=== PATIENT | male | born 1955 | race Caucasian/White ===

== ENCOUNTER 2020-09-07 14:48 | Inpatient (IN) | payer MEDICARE, MEDICAID ==
[~2020-09-07] VITALS: Ht 152.4 cm; Wt 54.9 kg
[2020-09-07] MEDS ORDERED: SODIUM CHLORIDE 0.9% 1000ML BAG (SEPSIS BOLUS) IV ONE (15:30)
[2020-09-07] MEDS ORDERED: CEFTRIAXONE 1 G PREMIX 50 ML IV NR (15:30)
[2020-09-07 15:52] LABS: MEAN CORPUSCULAR HEMOGLOBIN 38.4 pg (28.0-32.0); MEAN CORPUSCULAR VOLUME 106.2 fL (80.0-94.0); PLATELET 81 x1000/uL (130-400); RED CELL DISTRIBUTION WIDTH 16.2 % (11.6-14.6)
[2020-09-07 15:58] LABS: CHLORIDE 96 mEq/L (98-107)
[2020-09-07 16:01] LABS: HEMATOCRIT. 15.9 % (42.0-52.0); HEMOGLOBIN. 5.7 g/dL (14.0-18.0)
[2020-09-07 16:23] LABS: PLATELET ESTIMATE DECREASED
[2020-09-07] MEDS ORDERED: OCTREOTIDE 1,000 MCG in SODIUM CHLORIDE 0.9% 100 ML IV SCH ×2 (16:44→17:00)
[2020-09-07] MEDS ORDERED: PANTOPRAZOLE SODIUM 40 MG/VIAL IV NR (16:45)
[2020-09-07] MEDS ORDERED: DOCUSATE SODIUM 100MG CAPSULE PO PRN (19:30)
[2020-09-07] MEDS ORDERED: GUAIFENESIN 200MG/10ML SUGAR FREE UDC PO PRN (19:30)
[2020-09-07] MEDS ORDERED: ONDANSETRON HCL 4MG/2ML INJ IV PRN (19:30)
[2020-09-07] MEDS ORDERED: CLONIDINE 0.1MG TABLET PO PRN (19:30)
[2020-09-07] MEDS ORDERED: ACETAMINOPHEN 325MG TABLET PO PRN ×2 (19:30)
[2020-09-07] MEDS ORDERED: NA PHOS,M-B/NA PHOS,DI-BA ENEMA 118ML PR PRN (19:30)
[2020-09-07] MEDS ORDERED: LEVOFLOXACIN 500MG PREMIX 100 ML IV NR (19:30)
[2020-09-07] MEDS: DEXT 5%/LACTATED RINGERS 1,000 ML IV SCH (19:30)
[2020-09-07] MEDS ORDERED: IPRATROPIUM/ALBUTEROL 0.5-3(2.5)MG/3ML NEB NEB PRN (19:30)
[2020-09-07] MEDS ORDERED: MAGNESIUM/ALUMINUM HYDROXIDE/SIMETHICONE 30ML UDC PO PRN (19:30)
[2020-09-07 19:32] LABS: INR 1.5; PARTIAL THROMBOPLASTIN TIME 60.9 sec (23.4-31.0); PROTHROMBIN TIME 15.9 sec (9.6-11.0)
[2020-09-07 19:41] LABS: ETHANOL BLOOD < 10 mg/dL
[2020-09-07 19:43] LABS: TOTAL IRON BINDING CAPACITY 126 ug/dL (250-450)
[2020-09-07] MEDS ORDERED: NOREPINEPHRINE 8MG/250ML PMX 250 ML IV PRN (19:45)
[2020-09-07 19:47] LABS: T4 FREE 0.96 ng/dL (0.76-1.46)
[2020-09-07] MEDS ORDERED: LACTULOSE 20G/30ML UDC PO SCH (20:00)
[2020-09-07 20:02] LABS: FOLIC ACID (FOLATE) SERUM 10.2 ng/mL (>5.38)
[2020-09-07] MEDS ORDERED: PHYTONADIONE 10MG/ML AMP SUBCUT NR (22:15)
[2020-09-07] MEDS ORDERED: PHYTONADIONE 10 MG in DEXTROSE 5% WATER 50 ML SUBCUT ONE (22:15)
[2020-09-07] MEDS: LACTULOSE 20G/30ML UDC PO SCH (23:22)
[2020-09-08 00:35] LABS: CREATINE KINASE 50 IU/L (39-308)
[2020-09-08 00:37] LABS: CREATINE KINASE MB FRACTION 1.6 ng/mL (0.5-3.6)
[2020-09-08 00:57] LABS: HEMATOCRIT. 22.9 % (42.0-52.0); HEMOGLOBIN. 7.9 g/dL (14.0-18.0); MEAN CORPUSCULAR VOLUME 95.2 fL (80.0-94.0); MEAN PLATELET VOLUME 7.2 fl (7.4-10.4); PLATELET 83 x1000/uL (130-400); RED CELL DISTRIBUTION WIDTH 21.5 % (11.6-14.6)
[2020-09-08 01:38] LABS: CLARITY URINE CLEAR (CLEAR); COLOR URINE YELLOW (YELLOW); KETONES URINE NEGATIVE (NEGATIVE); LEUKOCYTE ESTERASE URINE NEGATIVE (NEGATIVE); NITRITE URINE NEGATIVE (NEGATIVE); OCCULT BLOOD URINE NEGATIVE (NEGATIVE); PROTEIN URINE NEGATIVE (NEGATIVE); SPECIFIC GRAVITY URINE 1.013 (1.005-1.030); UROBILINOGEN URINE 0.2 E.U./dL (0.2-1.0)
[2020-09-08 01:50] LABS: *AMPHETAMINES SCREEN URINE NEGATIVE (NEGATIVE); *BARBITURATES SCREEN URINE NEGATIVE (NEGATIVE)
[2020-09-08 01:51] LABS: *BENZODIAZEPINES SCREEN URINE NEGATIVE (NEGATIVE); *COCAINE SCREEN URINE NEGATIVE (NEGATIVE); CANNABINOID URINE SCREEN NEGATIVE (NEGATIVE); METHADONE URINE SCREEN NEGATIVE (NEGATIVE); OPIATES URINE SCREEN NEGATIVE (NEGATIVE); PHENCYCLIDINE URINE SCREEN NEGATIVE (NEGATIVE)
[2020-09-08] MEDS ORDERED: OCTREOTIDE 1,000 MCG in SODIUM CHLORIDE 0.9% 100 ML IV SCH (02:00)
[2020-09-08] MEDS ORDERED: NOREPINEPHRINE 8 MG in DEXT 5% WATER 242 ML IV PRN (02:00)
[2020-09-08] MEDS ORDERED: PANTOPRAZOLE 80 MG in SODIUM CHLORIDE 0.9% 100 ML IV SCH (02:00)
[2020-09-08] MEDS: PANTOPRAZOLE 80 MG in SODIUM CHLORIDE 0.9% 100 ML IV SCH ×2 (02:32→13:00)
[2020-09-08 04:39] LABS: HEMATOCRIT. 22.4 % (42.0-52.0); HEMOGLOBIN. 7.5 g/dL (14.0-18.0); MEAN CORPUSCULAR HEMOGLOBIN 32.5 pg (28.0-32.0); MEAN PLATELET VOLUME 7.8 fl (7.4-10.4); PLATELET 89 x1000/uL (130-400); RED BLOOD CELL COUNT 2.31 mill/uL (4.7-6.1); RED CELL DISTRIBUTION WIDTH 21.6 % (11.6-14.6)
[2020-09-08 04:56] LABS: CHLORIDE 100 mEq/L (98-107)
[2020-09-08 05:02] LABS: PHOSPHORUS 4.6 mg/dL (2.5-4.9)
[2020-09-08 05:04] LABS: CREATINE KINASE 35 IU/L (39-308)
[2020-09-08] MEDS: LACTULOSE 20G/30ML UDC PO SCH ×3 (06:40→22:21)
[2020-09-08] MEDS ORDERED: CEFTRIAXONE 1 G PREMIX 50 ML IV SCH (09:00)
[2020-09-08] MEDS ORDERED: CEFTRIAXONE SODIUM 1 G/VIAL ONE (10:12)
[2020-09-08] MEDS: CEFTRIAXONE 1,000 MG in DEXTROSE 5% WATER 50 ML IV SCH (10:36)
[2020-09-08] MEDS ORDERED: OCTREOTIDE 1,000 MCG in SODIUM CHLORIDE 0.9% 98 ML IV SCH (13:15)
[2020-09-08] MEDS: SODIUM CHLORIDE 0.9% 1,000 ML IV SCH (13:45)
[2020-09-08] MEDS: DEXT 5%/LACTATED RINGERS 1,000 ML IV SCH (15:50)
[2020-09-08] MEDS: PANTOPRAZOLE SODIUM 40 MG/VIAL IV SCH (18:12)
[2020-09-08 21:55] VITALS: BP 131/78
[2020-09-09] VITALS (16 sets, daily range): BP systolic 89–113; BP diastolic 49–72
[2020-09-09 02:37] LABS: PLATELET ESTIMATE DECREASED
[2020-09-09 02:45] LABS: PLATELET ESTIMATE DECREASED
[2020-09-09] MEDS: SODIUM CHLORIDE 0.9% 1,000 ML IV SCH ×2 (03:40→16:37)
[2020-09-09] MEDS ORDERED: FURO40TA5 PO (04:21)
[2020-09-09] MEDS ORDERED: LACT10SO6 PO (04:21)
[2020-09-09] MEDS ORDERED: SPIR50TA5 PO (04:21)
[2020-09-09] MEDS ORDERED: ZOLP5TAB2 PO (04:21)
[2020-09-09] MEDS: LACTULOSE 20G/30ML UDC PO SCH ×3 (06:11→22:03)
[2020-09-09 08:52] LABS: MEAN CORPUSCULAR HEMOGLOBIN 33.4 pg (28.0-32.0); MEAN CORPUSCULAR VOLUME 95.9 fL (80.0-94.0); MEAN PLATELET VOLUME 8.2 fl (7.4-10.4); PLATELET 74 x1000/uL (130-400)
[2020-09-09 09:00] LABS: PHOSPHORUS 4.6 mg/dL (2.5-4.9)
[2020-09-09 09:16] LABS: HEMATOCRIT. 17.2 % (42.0-52.0)
[2020-09-09] MEDS: CEFTRIAXONE 1,000 MG in DEXTROSE 5% WATER 50 ML IV SCH (09:36)
[2020-09-09] MEDS: PANTOPRAZOLE SODIUM 40 MG/VIAL IV SCH ×2 (09:36→16:39)
[2020-09-09] MEDS ORDERED: LEVOFLOXACIN 500MG PREMIX 100 ML IV SCH (11:00)
[2020-09-09] MEDS ORDERED: SODIUM POLYSTYRENE SULFONATE 15 G/60 ML BOT PO NR (11:00)
[2020-09-09 11:34] LABS: FERRITIN 753 ng/mL (22-322)
[2020-09-09 11:45] LABS: HEPATITIS B SURFACE ANTIGEN NEGATIVE
[2020-09-09 12:06] LABS: PLATELET ESTIMATE DECREASED
[2020-09-09 12:13] LABS: HEPATITIS A AB IGM NEGATIVE (NEGATIVE)
[2020-09-10] VITALS: BP 114/62
[2020-09-10 01:30] LABS: HEMOGLOBIN 8.2 g/dL (14.0-18.0)
[2020-09-10 01:36] LABS: HEMATOCRIT 22.1 % (42.0-52.0)
[2020-09-10 04:00] VITALS: BP 98/61
[2020-09-10] MEDS: SODIUM CHLORIDE 0.9% 1,000 ML IV SCH ×2 (06:26→18:36)
[2020-09-10] MEDS: LACTULOSE 20G/30ML UDC PO SCH ×2 (06:26→17:00)
[2020-09-10 06:59] LABS: HEMATOCRIT. 24.9 % (42.0-52.0); HEMOGLOBIN. 8.8 g/dL (14.0-18.0); MEAN CORPUSCULAR HEMOGLOBIN 34.3 pg (28.0-32.0); MEAN CORPUSCULAR VOLUME 97.7 fL (80.0-94.0); MEAN PLATELET VOLUME 8.3 fl (7.4-10.4); PLATELET 70 x1000/uL (130-400); RED BLOOD CELL COUNT 2.55 mill/uL (4.7-6.1); RED CELL DISTRIBUTION WIDTH 19.5 % (11.6-14.6)
[2020-09-10 07:21] LABS: PHOSPHORUS 3.9 mg/dL (2.5-4.9)
[2020-09-10 08:11] VITALS: BP 101/67
[2020-09-10] MEDS: RIFAXIMIN 550 MG TABLET PO SCH ×2 (09:38→18:34)
[2020-09-10] MEDS: PANTOPRAZOLE SODIUM 40 MG/VIAL IV SCH ×2 (09:38→18:34)
[2020-09-10] MEDS: CEFTRIAXONE 1,000 MG in DEXTROSE 5% WATER 50 ML IV SCH (09:38)
[2020-09-10] MEDS: PHYTONADIONE 10MG/ML AMP SUBCUT SCH (09:39)
[2020-09-10 12:03] VITALS: BP 96/55
[2020-09-10 14:53] LABS: PLATELET ESTIMATE DECREASED
[2020-09-10 16:10] VITALS: BP 113/70
[2020-09-10 20:00] VITALS: BP 93/60
[2020-09-11] VITALS (14 sets, daily range): BP systolic 76–107; BP diastolic 40–73
[2020-09-11 06:55] LABS: INR 1.6; PROTHROMBIN TIME 16.8 sec (9.6-11.0)
[2020-09-11 07:02] LABS: HEMOGLOBIN. 7.1 g/dL (14.0-18.0); MEAN CORPUSCULAR HEMOGLOBIN 33.7 pg (28.0-32.0); MEAN CORPUSCULAR VOLUME 97.4 fL (80.0-94.0); MEAN PLATELET VOLUME 8.3 fl (7.4-10.4); PLATELET 62 x1000/uL (130-400); RED BLOOD CELL COUNT 2.12 mill/uL (4.7-6.1); RED CELL DISTRIBUTION WIDTH 19.6 % (11.6-14.6)
[2020-09-11 07:06] LABS: PHOSPHORUS 3.8 mg/dL (2.5-4.9)
[2020-09-11 07:55] LABS: HEMATOCRIT. 20.7 % (42.0-52.0)
[2020-09-11] MEDS: PANTOPRAZOLE SODIUM 40 MG/VIAL IV SCH ×2 (09:00→16:00)
[2020-09-11] MEDS: CEFTRIAXONE 1,000 MG in DEXTROSE 5% WATER 50 ML IV SCH (09:00)
[2020-09-11] MEDS: PHYTONADIONE 10MG/ML AMP SUBCUT SCH ×2 (09:00→16:01)
[2020-09-11] MEDS: LACTULOSE 20G/30ML UDC PO SCH ×2 (09:00→16:01)
[2020-09-11] MEDS: SODIUM CHLORIDE 0.9% 1,000 ML IV SCH ×2 (09:00→20:47)
[2020-09-11] MEDS: RIFAXIMIN 550 MG TABLET PO SCH ×2 (09:01→16:01)
[2020-09-11] MEDS ORDERED: LEVOFLOXACIN 500MG TABLET PO SCH (11:00)
[2020-09-11] MEDS: MIDODRINE HCL 5MG TABLET PO SCH ×2 (12:22→16:01)
[2020-09-11] MEDS ORDERED: SODIUM BICARBONATE 4% (2.4MEQ) 5ML VIAL IV ONE (14:14)
[2020-09-11] MEDS ORDERED: LIDOCAINE HCL 1% 20ML VIAL (Pyxis) INJ ONE (14:14)
[2020-09-11 14:24] LABS: PLATELET ESTIMATE DECREASED
[2020-09-11 23:46] LABS: HEMATOCRIT 22.2 % (42.0-52.0); HEMOGLOBIN 7.8 g/dL (14.0-18.0)
[2020-09-11 23:55] LABS: INR 1.6; PROTHROMBIN TIME 16.2 sec (9.6-11.0)
[2020-09-12] VITALS: BP 106/60
[2020-09-12 04:00] VITALS: BP 110/65
[2020-09-12 05:55] LABS: HEMATOCRIT. 22.9 % (42.0-52.0); MEAN CORPUSCULAR HEMOGLOBIN 33.2 pg (28.0-32.0); MEAN PLATELET VOLUME 8.7 fl (7.4-10.4); RED BLOOD CELL COUNT 2.41 mill/uL (4.7-6.1); RED CELL DISTRIBUTION WIDTH 20.7 % (11.6-14.6)
[2020-09-12 06:07] LABS: CHLORIDE 104 mEq/L (98-107)
[2020-09-12 08:00] VITALS: BP 100/56
[2020-09-12 08:45] LABS: PLATELET 46 x1000/uL (130-400)
[2020-09-12] MEDS: CEFTRIAXONE 1,000 MG in DEXTROSE 5% WATER 50 ML IV SCH (09:04)
[2020-09-12] MEDS: LACTULOSE 20G/30ML UDC PO SCH (09:04)
[2020-09-12] MEDS: PANTOPRAZOLE SODIUM 40 MG/VIAL IV SCH (09:05)
[2020-09-12] MEDS: MIDODRINE HCL 5MG TABLET PO SCH (09:05)
[2020-09-12] MEDS: PHYTONADIONE 10MG/ML AMP SUBCUT SCH (09:05)
[2020-09-12] MEDS: RIFAXIMIN 550 MG TABLET PO SCH (09:05)
[2020-09-12 10:00] VITALS: BP 134/74
[2020-09-12] MEDS: SODIUM CHLORIDE 0.9% 1,000 ML IV SCH (11:05)
[2020-09-12 13:22] LABS: PLATELET ESTIMATE MARKEDLY DECREASED
== END 2020-09-12 11:45 | disposition home or self-care (01) | DRG 871 ==
LOC: ER 14:48 → MICUSO 16:50 → SUPCPDRO 19:15 → MICUSO 09-08 15:08 → 6WST 09-08 20:49
PROVIDERS: ADMIT Internal Medicine; ATTEND Internal Medicine
PROC: 30233N1 Transfusion of Nonautologous Red Blood Cells into Peripheral Vein, Percutaneous Approach (ICD-10-PCS; 2020-09-07)
PROC: 30233K1 Transfusion of Nonautologous Frozen Plasma into Peripheral Vein, Percutaneous Approach (ICD-10-PCS; principal; 2020-09-11)
PROC: 0W9G3ZZ Drainage of Peritoneal Cavity, Percutaneous Approach (ICD-10-PCS; 2020-09-11)
DX: A41.9 Sepsis, unspecified organism (principal); R65.21 Severe sepsis with septic shock; E43 Unspecified severe protein-calorie malnutrition; I81 Portal vein thrombosis; N17.0 Acute kidney failure with tubular necrosis; G92 Toxic encephalopathy; E87.1 Hypo-osmolality and hyponatremia; D68.4 Acquired coagulation factor deficiency; K92.2 Gastrointestinal hemorrhage, unspecified; C22.9 Malignant neoplasm of liver, not specified as primary or secondary; R18.8 Other ascites; D53.9 Nutritional anemia, unspecified; K74.60 Unspecified cirrhosis of liver; E83.51 Hypocalcemia; D69.6 Thrombocytopenia, unspecified; D70.9 Neutropenia, unspecified; Z68.23 Body mass index [BMI] 23.0-23.9, adult; Z20.822 Contact with and (suspected) exposure to COVID-19
CPT/HCPCS: 36415; 49083; 71045; 76700; 80048; 80053; 80076; 80305; 80320; 81003; 82105; 82140; 82248; 82270; 82550; 82553; 82607; 82728; 82746; 83036; 83540; 83550; 83605; 83735; 84100; 84145; 84439; 84443; 84484; 85014; 85018; 85025; 85044; 85049; 85384; 86705; 86709; 86803; 86850; 86900; 86920; 86927; 87015; 87045; 87340; 87426; 87427; 87449; 88108; 88312; 89055; 93005; 93306; 93970; 97162; 99291; C9113; J0696; J1956; J2354; J3430; J3490; J7030; J7040; J7050; J7060; P9016; P9017; G0480